=== PATIENT | male | born 1990 | race Caucasian/White ===

== ENCOUNTER 2024-07-04 01:06 | Emergency (ER) | payer OTHER ==
[~2024-07-04] VITALS: Ht 154.9 cm; Wt 91.2 kg
[2024-07-04] MEDS ORDERED: LIDOCAINE HCL 1% 20 ML VIAL ONE (02:34)
[2024-07-04 03:10] VITALS: O2SAT 97
[2024-07-04] MEDS: LIDOCAINE HCL 1% 20 ML VIAL TP ONE (03:15)
[2024-07-04] MEDS ORDERED: diphenhydrAMINE 25 MG CAP PO ONE (03:23)
[2024-07-04] MEDS ORDERED: HYDROMORPHONE HCL 2 MG TABLET ONE (03:23)
[2024-07-04] MEDS: HYDROMORPHONE HCL 2 MG TABLET PO ONE (03:28)
[2024-07-04] MEDS: HYDROMORPHONE 1 MG/1 ML DISP.SYRIN IM ONE (03:30)
[2024-07-04] MEDS: diphenhydrAMINE 50 MG/1 ML VIAL IM ONE (03:31)
[2024-07-04] MEDS: diphenhydrAMINE 25 MG CAP PO ONE (03:32)
[2024-07-04] MEDS ORDERED: HYDR2TAB7 PO (04:57)
== END 2024-07-04 05:23 | disposition home or self-care (01) ==
LOC: ER 01:20
DX: L02.31 Cutaneous abscess of buttock (principal); K60.30 Anal fistula, unspecified
CPT/HCPCS: 99284; 10061; 72192; Q0163; J3490; A4606; A4663

== ENCOUNTER 2024-09-26 10:16 | Emergency (ER) | payer OTHER ==
[~2024-09-26] VITALS: Ht 154.9 cm; Wt 91.6 kg
[~2024-09-26 10:16] MED LIST: HYDR2TAB7 PO
[2024-09-26 10:40] LABS: *BILIRUBIN,URIN NEGATIVE (NEGATIVE); *BLOOD, URINE 3+ (NEGATIVE); *CLARITY,URINE SLIGHTLY CLOUDY (CLEAR); *COLOR,URINE YELLOW (YELLOW); *KETONES,URINE NEGATIVE (NEGATIVE); *PROTEIN,URINE 1+ (NEGATIVE); *UROBILINOGEN,URINE 0.2 E.U./dl (NORMAL); LEUKOCYTE ESTERASE ,URINE NEGATIVE (NEGATIVE); NITRITE, URINE NEGATIVE (NEGATIVE); UGLUCOSE NEGATIVE (NEGATIVE)
[2024-09-26 10:54] LABS: BASOPHILS % (AUTO) 0.6 % (0.0-2.0); EOSINOPHILS # (AUTO) 0.1 K/uL (0.0-0.7); HEMATOCRIT 44.8 % (36.7-47.1); HEMOGLOBIN 15.3 g/dL (12.5-16.3); LYMPHOCYTES # (AUTO) 1.7 K/uL (0.8-4.8); LYMPHOCYTES % (AUTO) 27.7 % (20.5-51.5); MEAN CORPUSCULAR HEMOGLOBIN 29.7 uug (23.8-33.4); MEAN CORPUSCULAR HGB CONC 34 g/dL (32.5-36.3); MEAN CORPUSCULAR VOLUME 86.7 fL (73.0-96.2); MONOCYTES # (AUTO) 0.5 K/uL (0.1-1.30); MONOCYTES % (AUTO) 8.9 % (0.0-11.0); NEUTROPHILS # (AUTO) 3.8 K/uL (1.8-8.9); NEUTROPHILS % (AUTO) 61.8 % (38.5-71.5); PLATELET COUNT (AUTO) 298 K/uL (152-348); RED BLOOD CELL COUNT(AUTO) 5.16 MIL/uL (4.06-5.63); RED CELL DISTRIBUTION WIDTH 13.6 % (12.1-16.2); WHITE BLOOD COUNT (AUTO) 6.2 K/uL (3.6-10.2)
[2024-09-26 11:11] LABS: DIFFERENTIAL COMMENT 1
[2024-09-26 11:17] LABS: CALCIUM 9.6 mg/dL (8.5-10.1); CARBON DIOXIDE 25 mmol/L (21-32); CHLORIDE 105 mmol/L (98-107); CREATININE 0.9 mg/dL (0.6-1.3); GLUCOSE 105 mg/dL (74-106); POTASSIUM 4.1 mmol/L (3.5-5.1); SODIUM SERUM 142 mmol/L (136-145); UREA NITROGEN, BLOOD 15 mg/dL (7-18)
[2024-09-26 11:23] LABS: ALANINE AMINOTRANSFERASE 74 U/L (16-63); ALBUMIN 4.4 g/dL (3.4-5.0); ALKALINE PHOSPHATASE 60 U/L (50-136); ASPARTATE AMINOTRANSFERASE 29 U/L (15-37); BILIRUBIN,DIRECT 0.2 mg/dL (0.0-0.2); BILIRUBIN,TOTAL 0.4 mg/dL (0.2-1.0); LIPASE 28 U/L (16-77); TOTAL PROTEIN, SERUM 8.1 g/dL (6.4-8.2)
[2024-09-26 11:34] LABS: BACTERIA,URINE FEW /HPF (NONE SEEN); RBC,URINE 50-80 /HPF (0-3); YEAST,URINE BUDDING YEAST /HPF (NONE SEEN)
[2024-09-26] MEDS ORDERED: TAMS-3 PO (11:48)
[2024-09-26 12:03] VITALS: BP 141/87; O2SAT 98
[2024-09-27 13:08] LABS: *CHLAMYDIA NAA Negative (Negative); *GC NAA Negative (Negative)
[2024-09-28 00:11] LABS: *TRIC.VAG. NAA Negative (Negative)
== END 2024-09-26 12:04 | disposition home or self-care (01) ==
LOC: ER 10:16
DX: N13.2 Hydronephrosis with renal and ureteral calculous obstruction (principal); R10.12 Left upper quadrant pain; R11.0 Nausea; Z88.7 Allergy status to serum and vaccine
CPT/HCPCS: 36415; 83690; 84484; 85025; 85730; 87086; 87491; A4606; A4663